=== PATIENT | male | born 1930 | race Caucasian/White ===

== ENCOUNTER 2016-12-15 17:23 | Emergency (ER) | payer OTHER ==
[~2016-12-15] VITALS: Ht 167.6 cm; Wt 100.0 kg
[~2016-12-15 17:23] MED LIST: ACCOLATE20 MG PO; ASPIRIN81 M1 PO; ASPIRIN81 M2 PO; CARDIZEM CD,CA180 MG PO; CARDIZEM CD,CA240 M1 PO; CLOBETASOL PROP60 GM TP; Cardizem CD; DEXILANT60 MG PO; DIFLORASONE DIA30 GM BOTH EYES; DIFLORASONE TP; DYAZIDE, MA1 CAPSULE PO; DYRENIUM 50 MG50 MG PO; Ecotrin PO; Feosol PO; Flovent 220 mcg IH; GLUCOPHAGE500 MG PO; GLUCOSAMINE CH1 EAC6 PO; Glucophage PO; KAPIDEX60 MG PO; LASIX20 MG PO; LISINOPRIL5 MG PO; Levothroid,Synthroid PO; Lopressor PO; METOPROLOL TART50 MG PO; OMEGA 3 1,0001 EACH PO; OMEGA 3-6-9 11200 MG PO; PRAVACHOL80 MG PO; Proventil,Ventolin H IH; RANITIDINE HCL300 MG PO; RHINOCORT AQUA8.6 G1 NS; SENOKOT S,PE1 TABLET PO; SYNTHROID100 MCG PO; ULTRAM50 MG PO; UROXATRAL10 MG PO; Uroxatral PO; VENTOLIN HFA18 GM IH; Vicodin,Norco 5/325 PO; ZAFIRLUKAST20 M1 PO; Zestril,Prinivil PO; [UNRECOGNIZED DRUG - OTHER] TP
[2016-12-15 20:06] VITALS: BP 138/66
== END 2016-12-15 20:07 | disposition home or self-care (01) ==
LOC: EME 17:23
DX: S00.01XA Abrasion of scalp, initial encounter (principal); S61.412A Laceration without foreign body of left hand, initial encounter; S50.312A Abrasion of left elbow, initial encounter; W01.198A Fall on same level from slipping, tripping and stumbling with subsequent striking against other object, initial encounter; J44.9 Chronic obstructive pulmonary disease, unspecified; J45.909 Unspecified asthma, uncomplicated; Z79.82 Long term (current) use of aspirin; Z87.891 Personal history of nicotine dependence
CPT/HCPCS: 70450; 73080; 99281; 99284